=== PATIENT | male | born 2005 | race Caucasian/White ===

== ENCOUNTER 2023-01-11 22:40 | Emergency (ER) | payer MEDICAID ==
[~2023-01-11] VITALS: Ht 167.6 cm; Wt 61.2 kg
[2023-01-11 22:50] VITALS: BP 134/95; PULSE 80; RESP 17; TEMP 98; O2SAT 100
--- NOTE | 2023-01-11 22:53 | NUR ---
TO LOBBY A/W BED AMBULATORY WITH MOTHER
--- NOTE | 2023-01-11 23:15 | NUR ---
PT RETURN FROM RADIOLOGY TO ER LOBBY
[2023-01-11 23:19] LABS: BASOPHILS % (AUTO) 0.5 % (0.0-2.0); EOSINOPHILS # (AUTO) 0.1 K/uL (0-0.4); EOSINOPHILS % (AUTO) 1.1 % (0.0-4.0); MEAN CORPUSCULAR HGB CONC 36 g/dL (33-37)
[2023-01-11 23:25] LABS: HEMATOCRIT 46.8 % (36-52); LYMPHOCYTES % (AUTO) 31.5 % (20.5-51.1); MEAN CORPUSCULAR HEMOGLOBIN 32 pg (27-31); MEAN CORPUSCULAR VOLUME 86.7 fL (80-94); MONOCYTES # (AUTO) 0.5 K/uL (0.8-1.0); MONOCYTES % (AUTO) 5.7 % (1.7-9.3); NEUTROPHILS # (AUTO) 5.9 K/uL (1.8-7.7); NEUTROPHILS % (AUTO) 61.2 % (42.2-75.2); PLATELET COUNT (AUTO) 220 K/uL (140-450); RED CELL DISTRIBUTION WIDTH 13.3 % (11.6-13.7); WHITE BLOOD COUNT (AUTO) 9.6 K/uL (4.5-11.0)
[2023-01-11 23:29] LABS: ANION GAP 11.5 (8-16); CARBON DIOXIDE 29.4 mmol/L (21-32); CREATININE 1.1 mg/dL (0.6-1.3); POTASSIUM 3.9 mmol/L (3.5-5.1)
[2023-01-12 00:14] VITALS: BP 122/84; PULSE 78; RESP 16; TEMP 98; O2SAT 100
--- NOTE | 2023-01-12 00:14 | NUR ---
FIRST CONTACT WITH PT FOR DC ONLY. NO S/S OF DISTRESS NOTED. SEE PROVIDER ASSESSMENT.
--- NOTE | 2023-01-12 00:14 | NUR ---
Patient discharged with v/s stable. Written and verbal after care instructions given and explained. Patient verbalized understanding. Ambulatory with steady gait. All questions addressed prior to discharge. Advised to follow up with PMD.
== END 2023-01-12 00:14 | disposition home or self-care (01) ==
LOC: MED 22:40
DX: R07.9 Chest pain, unspecified (principal); Z79.899 Other long term (current) drug therapy
CPT/HCPCS: 36415; 71045; 80048; 84484; 85025; 93005; 99285

== ENCOUNTER 2023-01-12 11:56 | Inpatient (IN) | payer MEDICAID ==
[~2023-01-12] VITALS: Ht 167.6 cm; Wt 61.2 kg
[2023-01-12 11:57] VITALS: BP 121/67; PULSE 88; RESP 20; TEMP 98.6; O2SAT 99
[2023-01-12] MEDS ORDERED: LIDOCAINE MPF 2% 100 MG/5 ML VIAL INJ ONE (13:05)
[2023-01-12 13:18] LABS: BASOPHILS % (AUTO) 0.1 % (0.0-2.0); EOSINOPHILS % (AUTO) 0.3 % (0.0-4.0); HEMATOCRIT 46.3 % (36-52); HEMOGLOBIN 16.7 g/dL (12.0-18.0); LYMPHOCYTES # (AUTO) 1.3 K/uL (2.0-11.5); LYMPHOCYTES % (AUTO) 12.6 % (20.5-51.1); MEAN CORPUSCULAR HEMOGLOBIN 31 pg (27-31); MEAN CORPUSCULAR HGB CONC 36 g/dL (33-37); MEAN CORPUSCULAR VOLUME 86.3 fL (80-94); MONOCYTES # (AUTO) 0.8 K/uL (0.8-1.0); MONOCYTES % (AUTO) 7.6 % (1.7-9.3); NEUTROPHILS # (AUTO) 8.3 K/uL (1.8-7.7); NEUTROPHILS % (AUTO) 79.4 % (42.2-75.2); PLATELET COUNT (AUTO) 199 K/uL (140-450); RED BLOOD CELL COUNT(AUTO) 5.37 MIL/uL (4.20-6.10); RED CELL DISTRIBUTION WIDTH 13.2 % (11.6-13.7); WHITE BLOOD COUNT (AUTO) 10.4 K/uL (4.5-11.0)
[2023-01-12] MEDS ORDERED: LIDOCAINE 2% 1000 MG/50 ML VIAL INJ ONE (13:32)
[2023-01-12 13:56] LABS: INR 1.11 (0.8-1.2); PARTIAL THROMBOPLASTIN TIME 29.9 secs (22-35.6); PROTHROMBIN TIME 11.5 secs (10.8-13.4)
[2023-01-12 14:03] LABS: ALBUMIN 4.4 g/dL (3.4-5.0); ANION GAP 14.4 (8-16); CALCIUM 8.6 mg/dL (8.5-10.1); CARBON DIOXIDE 26.6 mmol/L (21-32); CREATININE 1.1 mg/dL (0.6-1.3); TOTAL BILIRUBIN 2.4 mg/dL (0.0-1.0); TOTAL PROTEIN, SERUM 7.6 g/dL (6.4-8.2)
[2023-01-12] MEDS: MORPHINE SULFATE 2 MG/ML SYR IVP PRN ×2 (16:39→20:57)
[2023-01-12 20:44] VITALS: BP 140/92; PULSE 68; RESP 18; TEMP 97.7; O2SAT 100
[2023-01-13] VITALS (7 sets, daily range): BP systolic 116–136; BP diastolic 80–86; PULSE 60–86; RESP 16–20; TEMP 97.1–98.3; O2SAT 99–100
[2023-01-13] MEDS ORDERED: traMADol 50 MG TAB PO PRN (06:05)
[2023-01-13] MEDS ORDERED: ACETAMINOPHEN 650 MG/20.3 ML UDC PO PRN (06:05)
[2023-01-13] MEDS: PANTOPRAZOLE 40 MG TABEC PO SCH ×2 (06:45→08:43)
[2023-01-13] MEDS ORDERED: MAG SULF 2000 MG/WATER PREMIX 50 ML IV PRN (10:50)
[2023-01-13] MEDS ORDERED: ONDANSETRON 4 MG/2 ML VIAL IVP PRN (10:50)
[2023-01-13] MEDS ORDERED: POTASSIUM CHLORIDE 10 MEQ TABER PO PRN (10:50)
[2023-01-13 11:29] LABS: BASOPHILS % (AUTO) 0.1 % (0.0-2.0); EOSINOPHILS % (AUTO) 0.3 % (0.0-4.0); HEMATOCRIT 46.9 % (36-52); HEMOGLOBIN 16.8 g/dL (12.0-18.0); LYMPHOCYTES # (AUTO) 1.6 K/uL (2.0-11.5); LYMPHOCYTES % (AUTO) 16.3 % (20.5-51.1); MEAN CORPUSCULAR HEMOGLOBIN 31 pg (27-31); MEAN CORPUSCULAR HGB CONC 36 g/dL (33-37); MEAN CORPUSCULAR VOLUME 86.6 fL (80-94); MONOCYTES # (AUTO) 0.5 K/uL (0.8-1.0); MONOCYTES % (AUTO) 5.1 % (1.7-9.3); NEUTROPHILS # (AUTO) 7.6 K/uL (1.8-7.7); NEUTROPHILS % (AUTO) 78.2 % (42.2-75.2); PLATELET COUNT (AUTO) 212 K/uL (140-450); RED BLOOD CELL COUNT(AUTO) 5.41 MIL/uL (4.20-6.10); RED CELL DISTRIBUTION WIDTH 13.3 % (11.6-13.7); WHITE BLOOD COUNT (AUTO) 9.7 K/uL (4.5-11.0)
[2023-01-13 11:39] LABS: ANION GAP 10.6 (8-16); CALCIUM 8.9 mg/dL (8.5-10.1); CARBON DIOXIDE 31.5 mmol/L (21-32); CREATININE 1.2 mg/dL (0.6-1.3); POTASSIUM 4.1 mmol/L (3.5-5.1)
[2023-01-13 11:49] LABS: INR 1.11 (0.8-1.2); PARTIAL THROMBOPLASTIN TIME 31.6 secs (22-35.6); PROTHROMBIN TIME 11.6 secs (10.8-13.4)
[2023-01-13 11:54] LABS: LACTIC ACID 1.5 mmol/L (0.4-2.0)
[2023-01-13 12:24] LABS: CHOL/HDL RATIO 2.6 (1-4.5); FREE T4 (FREE THYROXINE) 0.93 ng/dL (0.76-1.46); MAGNESIUM 2.2 mg/dL (1.8-2.4); PHOSPHORUS 3.7 mg/dL (2.5-4.9); THYROID STIMULATING HORMONE 1.1 uIU/mL (0.34-3.74)
[2023-01-13] MEDS: HYDROcodone/APAP 7.5/325 MG 1 TAB PO PRN (14:02)
[2023-01-13] MEDS: NACL 0.9% 1,000 ML IV SCH (14:03)
[2023-01-13] MEDS: PIPERACILLIN/TAZOBACTAM 3.375 GM in DEXTROSE 5% 50 ML IV SCH ×2 (14:04→20:41)
[2023-01-13 18:44] LABS: AMPHETAMINE, URINE NEGATIVE ng/ml (NEG <=1000); BARBITURATE, URINE NEGATIVE ng/ml (NEG <=200); BENZODIAZEPINE, URINE NEGATIVE ng/mL (NEG <=200); CANNABINOID, URINE NEGATIVE ng/mL (NEG <=50); COCAINE, URINE NEGATIVE ng/mL (NEG <=300); OPIATE, URINE POSITIVE ng/mL (NEG <=2000); PHENCYCLIDINE SCREEN,URINE NEGATIVE ng/mL (NEG <=25)
[2023-01-13] MEDS: ACETAMINOPHEN 325 MG TAB PO PRN (20:48)
[2023-01-13] MEDS: DOCUSATE SODIUM 100 MG GELCAP PO SCH (20:51)
[2023-01-13 21:54] LABS: APPEARANCE,URINE CLEAR (CLEAR); BILIRUBIN,URINE NEGATIVE (NEGATIVE); BLOOD, URINE NEGATIVE (NEGATIVE); COLOR,URINE YELLOW (YELLOW); LEUKOCYTE ESTERASE ,URINE NEGATIVE (NEGATIVE); NITRITE, URINE NEGATIVE (NEGATIVE); PROTEIN,URINE NEGATIVE (NEGATIVE); UGLUCOSE NEGATIVE (NEGATIVE); UROBILINOGEN,URINE 0.2 EU/dL (0.2 - 1)
[2023-01-14] MEDS: HYDROcodone/APAP 7.5/325 MG 1 TAB PO PRN ×3 (00:14→21:26)
[2023-01-14] MEDS: PIPERACILLIN/TAZOBACTAM 3.375 GM in DEXTROSE 5% 50 ML IV SCH ×2 (04:20→12:32)
[2023-01-14 06:35] LABS: BASOPHILS % (AUTO) 0.3 % (0.0-2.0); EOSINOPHILS # (AUTO) 0.2 K/uL (0-0.4); EOSINOPHILS % (AUTO) 2.4 % (0.0-4.0); HEMATOCRIT 43.9 % (36-52); HEMOGLOBIN 15.8 g/dL (12.0-18.0); LYMPHOCYTES # (AUTO) 2.3 K/uL (2.0-11.5); LYMPHOCYTES % (AUTO) 29.7 % (20.5-51.1); MEAN CORPUSCULAR HEMOGLOBIN 31 pg (27-31); MEAN CORPUSCULAR HGB CONC 36 g/dL (33-37); MEAN CORPUSCULAR VOLUME 86.8 fL (80-94); MONOCYTES # (AUTO) 0.7 K/uL (0.8-1.0); MONOCYTES % (AUTO) 9.1 % (1.7-9.3); NEUTROPHILS # (AUTO) 4.5 K/uL (1.8-7.7); NEUTROPHILS % (AUTO) 58.5 % (42.2-75.2); PLATELET COUNT (AUTO) 194 K/uL (140-450); RED BLOOD CELL COUNT(AUTO) 5.06 MIL/uL (4.20-6.10); WHITE BLOOD COUNT (AUTO) 7.7 K/uL (4.5-11.0)
[2023-01-14 06:42] LABS: ANION GAP 10.4 (8-16); CALCIUM 8.2 mg/dL (8.5-10.1); CARBON DIOXIDE 29.6 mmol/L (21-32); CREATININE 1.2 mg/dL (0.6-1.3)
[2023-01-14] MEDS: NACL 0.9% 1,000 ML IV SCH (06:50)
[2023-01-14 06:59] LABS: PHOSPHORUS 4.9 mg/dL (2.5-4.9)
[2023-01-14 08:00] VITALS: BP 127/73; PULSE 63; PULSE 77; RESP 18; TEMP 97.4; O2SAT 100
[2023-01-14] MEDS ORDERED: DOCUSATE SODIUM 100 MG GELCAP PO SCH (09:00)
[2023-01-14] MEDS: DOCUSATE SODIUM 100 MG GELCAP PO SCH ×2 (09:00→21:23)
[2023-01-14] MEDS: PANTOPRAZOLE 40 MG INJ VIAL IVP SCH (09:33)
[2023-01-14 16:00] VITALS: BP 140/82; PULSE 74; RESP 18; TEMP 97.9; O2SAT 100
[2023-01-14 20:00] VITALS: BP 130/74; PULSE 72; RESP 18; TEMP 97.4; O2SAT 100
[2023-01-15 04:00] VITALS: BP 111/54; PULSE 56; RESP 18; TEMP 96.5; O2SAT 100
[2023-01-15] MEDS: NACL 0.9% 1,000 ML IV SCH (05:50)
[2023-01-15 06:26] LABS: CALCIUM 8.3 mg/dL (8.5-10.1); CREATININE 0.9 mg/dL (0.6-1.3)
[2023-01-15 06:35] LABS: BASOPHILS % (AUTO) 0.3 % (0.0-2.0); EOSINOPHILS # (AUTO) 0.2 K/uL (0-0.4); EOSINOPHILS % (AUTO) 3.5 % (0.0-4.0); HEMATOCRIT 41.7 % (36-52); HEMOGLOBIN 14.9 g/dL (12.0-18.0); LYMPHOCYTES # (AUTO) 2.1 K/uL (2.0-11.5); LYMPHOCYTES % (AUTO) 34.7 % (20.5-51.1); MEAN CORPUSCULAR HEMOGLOBIN 31 pg (27-31); MEAN CORPUSCULAR HGB CONC 36 g/dL (33-37); MEAN CORPUSCULAR VOLUME 86.7 fL (80-94); MONOCYTES # (AUTO) 0.5 K/uL (0.8-1.0); MONOCYTES % (AUTO) 8.7 % (1.7-9.3); NEUTROPHILS # (AUTO) 3.1 K/uL (1.8-7.7); NEUTROPHILS % (AUTO) 52.8 % (42.2-75.2); PLATELET COUNT (AUTO) 185 K/uL (140-450); RED BLOOD CELL COUNT(AUTO) 4.81 MIL/uL (4.20-6.10); RED CELL DISTRIBUTION WIDTH 12.8 % (11.6-13.7); WHITE BLOOD COUNT (AUTO) 5.9 K/uL (4.5-11.0)
[2023-01-15 06:36] LABS: PHOSPHORUS 4.1 mg/dL (2.5-4.9)
[2023-01-15 08:00] VITALS: BP 115/73; PULSE 56; PULSE 66; RESP 18; TEMP 97.6; O2SAT 100
[2023-01-15] MEDS: DOCUSATE SODIUM 100 MG GELCAP PO SCH ×2 (08:16→20:09)
[2023-01-15] MEDS: HYDROcodone/APAP 7.5/325 MG 1 TAB PO PRN (08:20)
[2023-01-15] MEDS: PANTOPRAZOLE 40 MG INJ VIAL IVP SCH (08:21)
[2023-01-15 16:00] VITALS: BP 111/54; PULSE 63; RESP 18; TEMP 97.1; O2SAT 100
[2023-01-15] MEDS: ACETAMINOPHEN 325 MG TAB PO PRN (18:57)
[2023-01-15 20:00] VITALS: PULSE 66; PULSE 68; RESP 17; O2SAT 100
[2023-01-16] VITALS (7 sets, daily range): BP systolic 114–115; BP diastolic 67–75; PULSE 55–89; RESP 18; TEMP 96.6–98.1; O2SAT 94–100
[2023-01-16] MEDS: NACL 0.9% 1,000 ML IV SCH ×2 (00:07→17:45)
[2023-01-16 06:04] LABS: BASOPHILS % (AUTO) 0.4 % (0.0-2.0); EOSINOPHILS # (AUTO) 0.2 K/uL (0-0.4); EOSINOPHILS % (AUTO) 4.2 % (0.0-4.0); HEMATOCRIT 41.5 % (36-52); HEMOGLOBIN 14.7 g/dL (12.0-18.0); LYMPHOCYTES % (AUTO) 37.2 % (20.5-51.1); MEAN CORPUSCULAR HEMOGLOBIN 31 pg (27-31); MEAN CORPUSCULAR HGB CONC 35 g/dL (33-37); MEAN CORPUSCULAR VOLUME 87.2 fL (80-94); MONOCYTES # (AUTO) 0.5 K/uL (0.8-1.0); MONOCYTES % (AUTO) 9.2 % (1.7-9.3); NEUTROPHILS # (AUTO) 2.6 K/uL (1.8-7.7); PLATELET COUNT (AUTO) 184 K/uL (140-450); RED BLOOD CELL COUNT(AUTO) 4.76 MIL/uL (4.20-6.10); WHITE BLOOD COUNT (AUTO) 5.3 K/uL (4.5-11.0)
[2023-01-16 06:25] LABS: ANION GAP 10.5 (8-16); CALCIUM 8.7 mg/dL (8.5-10.1); CARBON DIOXIDE 30.7 mmol/L (21-32); CREATININE 0.9 mg/dL (0.6-1.3); POTASSIUM 4.2 mmol/L (3.5-5.1)
[2023-01-16 06:38] LABS: MAGNESIUM 2.1 mg/dL (1.8-2.4); PHOSPHORUS 4.3 mg/dL (2.5-4.9)
[2023-01-16] MEDS: DOCUSATE SODIUM 100 MG GELCAP PO SCH ×2 (08:14→20:29)
[2023-01-16] MEDS: PANTOPRAZOLE 40 MG INJ VIAL IVP SCH (08:15)
[2023-01-16] MEDS: ACETAMINOPHEN 325 MG TAB PO PRN (20:58)
[2023-01-17] VITALS: BP 127/71; PULSE 83; RESP 18; TEMP 98.3; O2SAT 95
[2023-01-17 06:29] LABS: BASOPHILS % (AUTO) 0.3 % (0.0-2.0); EOSINOPHILS # (AUTO) 0.2 K/uL (0-0.4); EOSINOPHILS % (AUTO) 4.1 % (0.0-4.0); HEMATOCRIT 40.5 % (36-52); HEMOGLOBIN 14.4 g/dL (12.0-18.0); LYMPHOCYTES # (AUTO) 2.4 K/uL (2.0-11.5); LYMPHOCYTES % (AUTO) 42.8 % (20.5-51.1); MEAN CORPUSCULAR HEMOGLOBIN 31 pg (27-31); MEAN CORPUSCULAR HGB CONC 36 g/dL (33-37); MEAN CORPUSCULAR VOLUME 86.2 fL (80-94); MONOCYTES # (AUTO) 0.4 K/uL (0.8-1.0); MONOCYTES % (AUTO) 7.4 % (1.7-9.3); NEUTROPHILS # (AUTO) 2.5 K/uL (1.8-7.7); NEUTROPHILS % (AUTO) 45.4 % (42.2-75.2); PLATELET COUNT (AUTO) 187 K/uL (140-450); RED BLOOD CELL COUNT(AUTO) 4.69 MIL/uL (4.20-6.10); RED CELL DISTRIBUTION WIDTH 12.6 % (11.6-13.7); WHITE BLOOD COUNT (AUTO) 5.6 K/uL (4.5-11.0)
[2023-01-17 06:33] LABS: ANION GAP 8.7 (8-16); CALCIUM 8.5 mg/dL (8.5-10.1); CARBON DIOXIDE 30.3 mmol/L (21-32); CREATININE 0.8 mg/dL (0.6-1.3)
[2023-01-17 06:34] LABS: PHOSPHORUS 4.2 mg/dL (2.5-4.9)
[2023-01-17 07:56] VITALS: PULSE 83; RESP 18; O2SAT 95
[2023-01-17 08:00] VITALS: BP 114/63; PULSE 57; RESP 18; TEMP 98; O2SAT 98
[2023-01-17] MEDS: DOCUSATE SODIUM 100 MG GELCAP PO SCH ×2 (08:17→21:03)
[2023-01-17] MEDS: PANTOPRAZOLE 40 MG INJ VIAL IVP SCH (08:17)
[2023-01-17] MEDS: ACETAMINOPHEN 325 MG TAB PO PRN ×2 (12:39→21:05)
[2023-01-17] MEDS: NACL 0.9% 1,000 ML IV SCH (12:41)
[2023-01-17 16:11] VITALS: BP 120/62; PULSE 98; RESP 17; TEMP 98; O2SAT 98
[2023-01-17 20:00] VITALS: PULSE 76; RESP 18; O2SAT 98
[2023-01-18] VITALS (7 sets, daily range): BP systolic 97–117; BP diastolic 60–69; PULSE 61–79; RESP 18; TEMP 96.8–98.7; O2SAT 94–99
[2023-01-18] MEDS: PANTOPRAZOLE 40 MG INJ VIAL IVP SCH (08:28)
[2023-01-18] MEDS: DOCUSATE SODIUM 100 MG GELCAP PO SCH ×2 (08:28→20:38)
[2023-01-18] MEDS: NACL 0.9% 1,000 ML IV SCH (08:29)
[2023-01-18] MEDS: ACETAMINOPHEN 325 MG TAB PO PRN ×3 (10:42→22:29)
[2023-01-19] MEDS: NACL 0.9% 1,000 ML IV SCH ×3 (04:04→22:54)
[2023-01-19 07:59] VITALS: RESP 18; O2SAT 94
[2023-01-19 08:00] VITALS: PULSE 56; PULSE 70; RESP 18; O2SAT 99
[2023-01-19] MEDS: DOCUSATE SODIUM 100 MG GELCAP PO SCH ×2 (08:24→21:51)
[2023-01-19] MEDS: PANTOPRAZOLE 40 MG INJ VIAL IVP SCH (08:24)
[2023-01-19 09:17] VITALS: BP 113/57; PULSE 56; RESP 18; TEMP 98.2; O2SAT 99
[2023-01-19] MEDS: ACETAMINOPHEN 325 MG TAB PO PRN ×2 (10:01→21:54)
[2023-01-19] MEDS: HYDROcodone/APAP 7.5/325 MG 1 TAB PO PRN (12:35)
[2023-01-19 15:37] VITALS: BP 110/66; PULSE 82; RESP 18; TEMP 97; O2SAT 97
[2023-01-19 20:00] VITALS: BP 128/80; PULSE 74; RESP 17; TEMP 98.7; O2SAT 94
[2023-01-20 08:00] VITALS: BP 116/70; PULSE 66; PULSE 90; RESP 18; TEMP 97.7; O2SAT 100; O2SAT 94; O2SAT 98
[2023-01-20] MEDS: DOCUSATE SODIUM 100 MG GELCAP PO SCH (09:53)
[2023-01-20] MEDS: PANTOPRAZOLE 40 MG INJ VIAL IVP SCH (10:16)
[2023-01-20 12:03] LABS: BASOPHILS % (AUTO) 0.5 % (0.0-2.0); EOSINOPHILS # (AUTO) 0.2 K/uL (0-0.4); EOSINOPHILS % (AUTO) 4.2 % (0.0-4.0); HEMATOCRIT 43.3 % (36-52); HEMOGLOBIN 15.3 g/dL (12.0-18.0); LYMPHOCYTES # (AUTO) 1.6 K/uL (2.0-11.5); LYMPHOCYTES % (AUTO) 31.5 % (20.5-51.1); MEAN CORPUSCULAR HEMOGLOBIN 31 pg (27-31); MEAN CORPUSCULAR HGB CONC 36 g/dL (33-37); MEAN CORPUSCULAR VOLUME 86.6 fL (80-94); MONOCYTES # (AUTO) 0.4 K/uL (0.8-1.0); MONOCYTES % (AUTO) 7.3 % (1.7-9.3); NEUTROPHILS # (AUTO) 2.9 K/uL (1.8-7.7); NEUTROPHILS % (AUTO) 56.5 % (42.2-75.2); PLATELET COUNT (AUTO) 196 K/uL (140-450); RED BLOOD CELL COUNT(AUTO) 4.99 MIL/uL (4.20-6.10); RED CELL DISTRIBUTION WIDTH 12.9 % (11.6-13.7); WHITE BLOOD COUNT (AUTO) 5.1 K/uL (4.5-11.0)
[2023-01-20 12:13] LABS: CALCIUM 8.4 mg/dL (8.5-10.1); CARBON DIOXIDE 29.2 mmol/L (21-32); CREATININE 1.2 mg/dL (0.6-1.3); POTASSIUM 4.2 mmol/L (3.5-5.1)
[2023-01-20 14:21] VITALS: BP 116/70; PULSE 66; RESP 18; TEMP 97.7
== END 2023-01-20 15:00 | disposition short-term general hospital (02) | DRG 133 ==
LOC: MED 11:56 → MMU 15:11 → MTU 20:21
PROVIDERS: ADMIT Family Medicine; ATTEND Family Medicine
PROC: 0W9930Z Drainage of Right Pleural Cavity with Drainage Device, Percutaneous Approach (ICD-10-PCS; principal; 2023-01-12)
DX: J96.00 Acute respiratory failure, unspecified whether with hypoxia or hypercapnia (principal); J93.11 Primary spontaneous pneumothorax; R65.10 Systemic inflammatory response syndrome (SIRS) of non-infectious origin without acute organ dysfunction; J90 Pleural effusion, not elsewhere classified; F12.90 Cannabis use, unspecified, uncomplicated; F17.200 Nicotine dependence, unspecified, uncomplicated; J98.11 Atelectasis; N20.0 Calculus of kidney; Z20.822 Contact with and (suspected) exposure to COVID-19; J43.9 Emphysema, unspecified; R23.8 Other skin changes; Z79.899 Other long term (current) drug therapy; Z91.09 Other allergy status, other than to drugs and biological substances
CPT/HCPCS: 32551; 36415; 71045; 71250; 80048; 80053; 80305; 81003; 82140; 82150; 83036; 83605; 83690; 83735; 83880; 84100; 84439; 84443; 84484; 85025; 85610; 85730; 87081; 93005; 99285; C9113; J1644; J2001; J2270; J2543; J7060; Q0092

== ENCOUNTER 2023-01-29 20:58 | Emergency (ER) | payer MEDICAID ==
[~2023-01-29] VITALS: Ht 165.1 cm; Wt 61.2 kg
[2023-01-29 21:07] VITALS: BP 144/83; PULSE 86; RESP 16; TEMP 97.7; O2SAT 98
[2023-01-29 21:48] VITALS: BP 106/84; PULSE 81; RESP 13; O2SAT 98
[2023-01-29] MEDS ORDERED: CEPH-588 PO (23:07)
== END 2023-01-29 23:26 | disposition home or self-care (01) ==
LOC: MED 20:58
DX: J93.9 Pneumothorax, unspecified (principal); Z48.01 Encounter for change or removal of surgical wound dressing; Z98.890 Other specified postprocedural states; Z79.2 Long term (current) use of antibiotics
CPT/HCPCS: 71045; 99283